=== PATIENT | female | born 1985 | race African-American/Black ===

== ENCOUNTER 2019-08-24 12:03 | Emergency (ER) | payer OTHER ==
[~2019-08-24] VITALS: Ht 154.9 cm; Wt 102.1 kg
[~2019-08-24 12:03] MED LIST: ANTIVERT25 MG PO; COLACE100 MG PO; IBUPROFEN 800800 M1 PO; IRON325; LISINOPRIL5 MG PO; MAGIC MOUTHWASH SWISH&SPIT; MELOXICAM7.5 MG PO; NAPROSYN500 MG PO; PENICILLIN V P500 MG PO; PERCOCET 5-3251 EACH PO; ZOFRAN ODT4 MG PO
[2019-08-24 12:25] LABS: URINE BILIRUBIN NEGATIVE (Negative); URINE BLOOD NEGATIVE (Negative); URINE CLARITY CLEAR; URINE COLOR YELLOW; URINE GLUCOSE-RANDOM* NEGATIVE (Negative); URINE KETONES NEGATIVE (Negative); URINE LEUKOCYTES-REFLEX TRACE (Negative); URINE NITRITE-REFLEX NEGATIVE (Negative); URINE PROTEIN (DIPSTICK) NEGATIVE (Negative); URINE SPECIFIC GRAVITY 1.025 (1.005-1.035); URINE UROBILINOGEN 0.2 E.U./dl (0.2-1.0)
[2019-08-24] MEDS ORDERED: AMLODIPINE BESY10 MG PO (13:06)
[2019-08-24] MEDS ORDERED: HYDROCHLOROTHIA25 M2 (13:07)
[2019-08-24] MEDS ORDERED: CELEBREX100 MG/1 C (13:07)
[2019-08-24 13:10] LABS: ABSOLUTE NEUTROPHILS 4.8 thou/uL (1.4-8.2); BASOPHILS 1.1 % (0.0-2.0); EOSINOPHILS 3.6 % (0.0-3.0); HEMATOCRIT 39.1 % (37.0-47.0); HEMOGLOBIN 12.6 gm/dL (12.0-15.0); LYMPHOCYTES 30.5 % (24.0-44.0); MCH 28.9 pg (26.0-34.0); MCHC 32.1 g/dL (28.0-37.0); MONOCYTES 7.8 % (1.0-8.0); PLATELET COUNT 403 thou/uL (150-400); RBC 4.35 mil/uL (4.20-5.00); WBC 8.4 thou/uL (4.0-11.0)
[2019-08-24] MEDS ORDERED: VITAMIN D1000 UNI1 PO (13:10)
[2019-08-24 13:17] LABS: CALCIUM 9.3 mg/dL (8.5-10.1); CREATININE 0.8 mg/dL (0.6-1.0); POTASSIUM 3.6 mmol/L (3.5-5.1)
[2019-08-24 13:23] LABS: ALBUMIN 3.6 g/dL (3.4-5.0); TOTAL BILIRUBIN 0.4 mg/dL (<0.1-1.0); TOTAL PROTEIN 8.2 g/dL (6.4-8.2)
[2019-08-24] MEDS ORDERED: PRILOSEC OTC20 MG PO (14:26)
[2019-08-24] MEDS ORDERED: ZANTAC 150MG T150 MG PO (14:27)
[2019-08-24 14:32] VITALS: BP 148/103
== END 2019-08-24 14:39 | disposition home or self-care (01) ==
LOC: ER 12:03
PROVIDERS: Physician Assistant
DX: K29.70 Gastritis, unspecified, without bleeding (principal); R10.13 Epigastric pain; K21.9 Gastro-esophageal reflux disease without esophagitis; F17.210 Nicotine dependence, cigarettes, uncomplicated; E66.01 Morbid (severe) obesity due to excess calories; Z68.41 Body mass index [BMI] 40.0-44.9, adult; Z88.6 Allergy status to analgesic agent